=== PATIENT | female | born 1935 | race Caucasian/White ===

== ENCOUNTER 2017-09-20 07:38 | Day surgery (SDC) | payer MEDICARE, OTHER ==
[~2017-09-20] VITALS: Ht 160 cm; Wt 61.2 kg
[~2017-09-20 07:38] MED LIST: Calcium + Vita1 EACH PO; Fosamax70 MG PO; LISI20 PO; Pravastatin Sod80 MG PO
[2017-09-20] MEDS ORDERED: ALEVE220 MG (08:04)
== END 2017-09-20 09:40 | disposition home or self-care (01) ==
LOC: ORSCSDS 07:38
PROVIDERS: Anesthesiology
PROC: 3E0R33Z Introduction of Anti-inflammatory into Spinal Canal, Percutaneous Approach (ICD-10-PCS; principal; 2017-09-20 08:45)
DX: M50.121 Cervical disc disorder at C4-C5 level with radiculopathy (principal); I10 Essential (primary) hypertension; E78.00 Pure hypercholesterolemia, unspecified; Z79.899 Other long term (current) drug therapy
CPT/HCPCS: J1040; J2250; J3010

== ENCOUNTER 2018-06-01 08:44 | Emergency (ER) | payer MEDICARE, OTHER ==
[~2018-06-01] VITALS: Ht 162.6 cm; Wt 59.0 kg
[~2018-06-01 08:44] MED LIST changes: +ALEVE220 MG
[2018-06-01] MEDS ORDERED: Vistaril25 MG PO (10:38)
== END 2018-06-01 11:04 | disposition home or self-care (01) ==
LOC: ER 08:44
DX: L30.9 Dermatitis, unspecified (principal); Z79.899 Other long term (current) drug therapy
CPT/HCPCS: 99282

== ENCOUNTER → 2018-06-16 | Outpatient (CLI) | payer MEDICARE, OTHER ==
[~2018-06-16] MED LIST changes: +Vistaril25 MG PO
== END | disposition home or self-care (01) ==
LOC: LAB SHORT 08:55 → PLD 08:55
DX: L98.8 Other specified disorders of the skin and subcutaneous tissue (principal); L08.9 Local infection of the skin and subcutaneous tissue, unspecified; R23.4 Changes in skin texture
CPT/HCPCS: 88305; 88312

== ENCOUNTER → 2018-12-10 | Outpatient (CLI) | payer MEDICARE, OTHER ==
[2018-12-10 10:36] LABS: CHOL/HDL RATIO 4.1; Cholesterol 260 mg/dL (50-200); HDL Cholesterol 64 mg/dL (>39); LDL/HDL RATIO 2.6; Low Density Lipoprotein Chol 166 mg/dL (<110); Triglycerides 152 mg/dL (30-160); Very Low Density Lipoprot Chol 30 mg/dL (6-32)
== END | disposition home or self-care (01) ==
LOC: LAB SHORT 09:36 → LAB EV 09:36
PROVIDERS: Internal Medicine
DX: E78.5 Hyperlipidemia, unspecified (principal)
CPT/HCPCS: 36415; 80061

== ENCOUNTER → 2021-01-06 | Outpatient (CLI) | payer MEDICARE, OTHER | END | disposition home or self-care (01) | LOC: LAB SHORT 11:23 | DX: D48.5 Neoplasm of uncertain behavior of skin (principal) | CPT/HCPCS: 88305 ==

== ENCOUNTER → 2022-03-25 | Outpatient (CLI) | payer MEDICARE, OTHER | END | disposition home or self-care (01) | LOC: LAB SHORT 10:51 | DX: D04.39 Carcinoma in situ of skin of other parts of face (principal) | CPT/HCPCS: 88305 ==